=== PATIENT | female | born 1955 | race Hispanic/Latino ===

== ENCOUNTER 2017-12-12 09:17 | Outpatient (CLI) | payer MEDICARE ==
--- NOTE | 2017-12-12 11:34 | Mammography Report ---
BILATERAL DIGITAL DIAGNOSTIC MAMMOGRAM with CAD and RIGHT BREAST ULTRASOUND: 12/12/17 CLINICAL: Bilateral breast pain. History of a right benign surgical biopsy in 2010. COMPARISON:04/17/16 FINDINGS: The breasts are mostly fatty. Stable right upper outer postsurgical scar with surgical clips. The right breast is slightly smaller than the left. No mass, suspicious architectural distortion or suspicious calcifications. Ultrasound of the right breast (including all four quadrants and the retroareolar area) demonstrated no mass or cyst. However, a prominent duct at 12 o'clock near the nipple contains echogenic material. Color Doppler of the duct demonstrates no blood flow suggests an intraductal mass. Ultrasound of the left breast (including all four quadrants and the retroareolar area) demonstrated normal fibroglandular and fatty structures. No mass, cyst or shadowing. IMPRESSION: Negative mammogram and left breast ultrasound.Probably benign right focal duct ectasia at 12 o'clock near the nipple. BI-RADS CATEGORY: 3 - - Probably Benign RECOMMENDATION: Six month followup right breast ultrasound to reevaluate the duct ectasia at 12 o'clock near the nipple. COMMENT: Patient follow-up letters are generated by our DocSend application.
== END 2017-12-12 09:18 | disposition home or self-care (01) ==
LOC: SPVWC 09:17
PROVIDERS: ATTEND Family Medicine
DX: N63.0 Unspecified lump in unspecified breast (principal); I10 Essential (primary) hypertension; J45.909 Unspecified asthma, uncomplicated; Z90.710 Acquired absence of both cervix and uterus; F32.3 Major depressive disorder, single episode, severe with psychotic features
CPT/HCPCS: 77066